=== PATIENT | female | born 1945 ===

== ENCOUNTER 2019-03-28 18:10 | Inpatient (IN) | payer OTHER, MEDICARE ==
[2019-03-28 18:33] VITALS: BMI 20.5
--- NOTE | 2019-03-28 18:39 | PDOC ---
Attending Attestation - Resident Resident Name: Katty Lemons - ED Attending Attestation I have performed the following: I have examined & evaluated the patient, The case was reviewed & discussed with the resident, I agree w/resident's findings & plan, Exceptions are as noted - HPI HPI: 03/28/19 18:50 73-year-old female brought in by ambulance from [facility] for altered mental status ,hypotension and hypoxia. [facility] reports that she has nausea and vomiting earlier today 03/28/19 18:57 - Physicial Exam PE: 03/28/19 18:58 Thin ,73 yo female p/w decreased mental status , she will respond to painful stimuli and c/o her rt hip hurting when we moved her leg head no scalp lacerations,no hematomas lungs ++rhonchi bs on the left cvs [id number] abd flat +tenderness to deep palpation ext no edema skin dry mucus membranes neuro somnolent 03/28/19 19:52 - Critical Care Time Total Critical Care Time: 90 Critical Care Statement: The care of this patient involved high complexity decision making to prevent further life threatening deterioration of the patient 's condition and/or to evaluate & treat vital organ system(s) failure or risk of failure. - Medical Decision Making 03/28/19 19:48 sepsis workup initiated According to the [facility] notes this patient has chronic kidney disease stage IV on dialysis, urinary tract infections, metabolic encephalopathy, hypertension, ambulatory dysfunction, anemia, protein caloric malnutrition, hypokalemia, dementia and depression 03/28/19 19Patient placed on BiPAP with settings for ST, 10/5, right equal to 12 , oxygenation 100%. Her pulse ox on the settings are 99% Review of her CBC shows a mild anemia, troponin is 0.07, chemistries show hypokalemia with potassium equal to 3.2, creatinine is equal to 3 and her BUN is equal to 39, glucose equal to 218 Total bili equal to 1.2, AST to 40 03/28/19 19:55
[2019-03-28 18:52] LABS: BASO % 0.2 % (0-2.0); EOS % 0.1 % (0-4.5); HEMATOCRIT 32.6 % (32.4-45.2); HEMOGLOBIN 10.1 GM/dL (10.7-15.3); LYMPH % 6.9 % (8-40); MCH 33.3 pg (25.7-33.7); MCHC 31.1 g/dl (32.0-36.0); MEAN CELL VOLUME 107.3 fl (80-96); MEAN PLT VOLUME 9.2 fl (7.5-11.1); MONO % 5.9 % (3.8-10.2); NEUT % 86.9 % (42.8-82.8); PLATELET COUNT 260 K/MM3 (134-434); RBC 3.04 M/mm3 (3.60-5.2); RDW 23.2 % (11.6-15.6); VENOUS PC02 60.5 mmHg (38-52); VENOUS PH 7.33 (7.31-7.41); WHITE BLOOD COUNT 10.7 K/mm3 (4.0-10.0)
[2019-03-28] MEDS ORDERED: PIPERACILLIN/TAZOB 3.375 GM 3.375 GM in DEXTROSE 5%-WATER - 50 ML IVPB ONE (19:02)
[2019-03-28] MEDS ORDERED: VANCOMYCIN 1 GM in D5W (PRE-DOCKED) 1,000 MG/250 ML IVPB ONE (19:02)
[2019-03-28 19:04] LABS: INR 1.25 (0.83-1.09); PROTHROMBIN TIME (PATIENT) 14.8 SEC (9.7-13.0)
[2019-03-28 19:07] LABS: ACTIVATED PTT 29.3 SECONDS (25.2-36.5)
[2019-03-28 19:17] LABS: ALBUMIN 1.7 g/dl (3.4-5.0); BILIRUBIN,TOTAL 1.2 mg/dL (0.2-1); BLOOD UREA NITROGEN 39.2 mg/dL (7-18); CALCIUM 9.2 mg/dL (8.5-10.1); POTASSIUM 3.2 mmol/L (3.5-5.1)
--- NOTE | 2019-03-28 19:52 | PDOC ---
History of Present Illness - General Chief Complaint: Lethargy Stated Complaint: AMS Time Seen by Provider: 03/28/19 18:37 History Source: Custodial Records Exam Limitations: Clinical Condition - History of Present Illness Initial Comments: 03/28/19 19:50 73y F with PMH of ESRD on HD MWF (L AVF), HTN, Metabolic Encephalopathy, UTIs, Anemia, Hypokalemia, Dementia, Depression, Malnutrition BIBA from [facility] for hypotension, low O2 saturation and difficult to arouse. [facility] had been complaining of nausea and vomiting. She was found with vomit around her and she was found to be hypotensive (70s systolic), hypoxic (74) and tachycardic. She was sent to the ED. Here patient was arousable with pain and could state her name and birthday. She was found to be hypotensive and tachypneic. SpO2 read in the 80s with poor wave form. Unable to obtain further information from patient. [facility] state that patient had been refusing medications recently. Last dialysis was Friday. PMD: García PMH: see hpi Meds: see med rec Allergies: nkda Full code 03/28/19 20:43 Pt now awake. Stating she was vomiting "all day". Denies abdominal pain. Past History - Past Medical History Allergies/Adverse Reactions: Allergies Allergy/AdvReac Type Severity Reaction Status Date / Time No Known Allergies Allergy Verified 03/28/19 18:26 Home Medications: Ambulatory Orders Aspirin [Ecotrin] 81 mg PO 03/28/19 Darbepoetin Jacob in Polysorbat [Aranesp] 60 mcg IJ 03/28/19 Lidocaine [Aspercreme] 1 each TP 03/28/19 Loperamide HCl [Loperamide] 2 mg PO PRN 03/28/19 Metoprolol Tartrate 25 mg PO BID 03/28/19 Mirtazapine [Remeron -] 30 mg PO DAILY 03/28/19 Sertraline HCl [Zoloft -] 25 mg PO DAILY 03/28/19 Sevelamer Carbonate [Renvela] 800 mg PO TID 03/28/19 Zinc Oxide 20% Topical Oint 454 gm NR 03/28/19 Anemia: Yes COPD: No Dialysis: Yes GI Disorders: Yes (gerd) HTN: Yes - Psycho Social/Smoking Cessation Hx Smoking History: Unknown if ever smoked Have you smoked in the past 12 months: No Information on smoking cessation initiated: No Hx Alcohol Use: No Drug/Substance Use Hx: No Review of Systems - Review of Systems Able to Perform ROS?: No *Physical Exam - Vital Signs Last Vital Signs Temp Pulse Resp BP Pulse Ox 99.3 F 103 H 31 H 77/53 L 82 L 03/28/19 18:27 03/28/19 19:15 03/28/19 19:15 03/28/19 19:15 03/28/19 18:45 - Physical Exam General Appearance: Yes: Severe Distress, Cachetic, Thin HEENT: positive: HANK, Pale Conjunctivae, Other (dry membranes, poor dentition) . negative: Scleral Icterus (R), Scleral Icterus (L) Neck: positive: Trachea midline, Supple. negative: Lymphadenopathy (R), Lymphadenopathy (L) Respiratory/Chest: positive: Rapid RR, Crackles (Left smith), Rhonchi (L and R smith) Cardiovascular: positive: S1, S2, Tachycardia. negative: Edema, JVD, Murmur Vascular Pulses: Dorsalis-Pedis (R): 1+, Doralis-Pedis (L): 1+ Gastrointestinal/Abdominal: positive: Normal Bowel Sounds, Soft, Tenderness (RUQ ). negative: Distended, Hernia, Mass Extremity: positive: Normal Capillary Refill. negative: Swelling, Calf Tenderness, Erythema Integumentary: positive: Normal Color, Mottled, Other (sacral ulcer). negative : Erythema, Rash Neurologic: positive: Respond to painful stimul. negative: Alert Procedures - Central Line Central Line Lumen: triple Central Line Position: internal jugular (L) Anesthesia: 1% Lidocaine Amount of anesthesia (ccs): 2 Complications: none Post Central Line Insertion: sutured, good blood return Progress: 03/29/19 00:31 L IVJ line placed under ultrasound guidance using sterile techniques. Supervised by Dr. Coleman. needle placement confirmed by venous blood return. line placed at 16cm. will confirm with chest xray and adjust as needed. ED Treatment Course - LABORATORY CBC & Chemistry Diagram: 03/28/19 18:39 03/28/19 18:39 - ADDITIONAL ORDERS Additional order review: Laboratory Results 03/28/19 03/28/19 03/28/19 18:39 18:39 18:39 PT with INR 14.80 H INR 1.25 H PTT (Actin FS) 29.3 VBG pH 7.33 POC VBG pCO2 60.5 H POC VBG pO2 No Result Required. VBG HCO3 31.1 H VBG O2 Sat (Nicola) 14.0 L VBG Base Excess 4.7 H Sodium Potassium Chloride Carbon Dioxide Anion Gap BUN Creatinine Est GFR (CKD-EPI)AfAm Est GFR (CKD-EPI)NonAf Random Glucose Lactic Acid 11.6 H* Calcium Total Bilirubin AST ALT Alkaline Phosphatase Troponin I Total Protein Albumin 03/28/19 03/28/19 03/28/19 18:39 18:39 18:39 PT with INR INR PTT (Actin FS) Cancelled VBG pH POC VBG pCO2 POC VBG pO2 VBG HCO3 VBG O2 Sat (Nicola) VBG Base Excess Sodium 140 Potassium 3.2 L Chloride 94 L Carbon Dioxide 29 Anion Gap 17 H BUN 39.2 H Creatinine 3.0 H Est GFR (CKD-EPI)AfAm 17.03 Est GFR (CKD-EPI)NonAf 14.69 Random Glucose 218 H Lactic Acid Calcium 9.2 Total Bilirubin 1.2 H AST 40 H ALT 13 Alkaline Phosphatase 112 Troponin I 0.07 H Cancelled Total Protein 6.0 L Albumin 1.7 L 03/28/19 18:39 RBC 3.04 L MCV 107.3 H MCHC 31.1 L RDW 23.2 H MPV 9.2 Neutrophils % 86.9 H Lymphocytes % 6.9 L Monocytes % 5.9 Eosinophils % 0.1 Basophils % 0.2 - RADIOLOGY Radiology Studies Ordered: Category Date Time Status ABDOMEN & PELVIS CT W/O CONTR [CT] Stat CT Scan 03/28/19 20:03 Ordered Medical Decision Making - Critical Care Time Total Critical Care Time (minutes): 90 Critical Care Statement: The care of this patient involved high complexity decision making to prevent further life threatening deterioration of the patient 's condition and/or to evaluate & treat vital organ system(s) failure or risk of failure. - Medical Decision Making 03/28/19 20:45 73y F presenting from [facility] found to be hypotensive, hypoxic, tachycardic. arousable but lethargic. was vomiting and found in the vomitus ddx includes but not limited to hypovolemia (sepsis v. hypovolemic v. arrhythmia v. heart failure), pna (aspiration pneumonitis v community acquired) , anemia, blood loss, AAA pocus: no pericarial efusion, no AAA (limted views however) no FF. -septic w/u. 1L NS hung by EMS in L arm where AVF is. Line was locked and new line placed in R AC. Line also placed in LLE. received 3L NS. responding to fluids. labs show slight leukocytosis. vbg normal. abg shows metabolic alkalosis chem shows hypokalemia and hypochloremia likely 2/2 vomiting. -vanc, zosyn. repsonding to fluids. pt placed on bipap, saturating well. cxr shows L lobe haziness, could be aspirate. limited due to 1 view. pt now arousable. will admit to icu for hypovolemia and possibly aspiration pneumonitis, UTI Accepted by ICU 03/29/19 00:43 bp responds to fluids with MAPs going to the 70s however when not getting boluses, bp drops along with MAPS (<65). Pt may be chronically hypotensive however will place line and start on pressors. See procedure note for line. Line was determined to be emergent. No family at bedside. CXR for placement pending. Discharge - Discharge Information Problems reviewed: Yes Clinical Impression/Diagnosis: Hypovolemia Hypotension Qualifiers: Hypotension type: unspecified hypotension type Qualified Code(s): I95.9 - Hypotension, unspecified Aspiration into airway Qualifiers: Encounter type: initial encounter Qualified Code(s): T17.908A - Unspecified foreign body in respiratory tract, part unspecified causing other injury, initial encounter Condition: Stable - Admission Yes - Follow up/Referral - Patient Discharge Instructions - Post Discharge Activity
[2019-03-28 19:54] LABS: ARTERIAL BLD GAS O2 SATURATION 95.1 % (95-98); ARTERIAL BLOOD GAS PO2 89.1 mmHg (80-100); ARTERIAL BLOOD GAS pH 7.47 (7.35-7.45); CARBOXYHEMOGLOBIN 0.9 % (0-2)
[2019-03-28 20:16] LABS: ANISOCYTOSIS 2+; MACROCYTOSIS 2+; PLATELET ESTIMATE NORMAL
[2019-03-28] MEDS ORDERED: SODIUM CHLORIDE 1,000 ML IV STA ×2 (20:23)
[2019-03-28] MEDS ORDERED: PIPERACILLIN/TAZOB 3.375 GM 3.375 GM/50 ML BAG IVPB ONE (20:32)
[2019-03-28] MEDS ORDERED: ALBUTEROL SO4 0.083% IH SOL 2.5 MG/3 ML VIAL.NEB. NEB PRN (20:45)
--- NOTE | 2019-03-28 20:55 | CONSULT ---
Consultation: REQUESTING PROVIDER: Dr. Lemons CONSULT REQUEST: We have been asked to medically evaluate this patient for hypotension, lethargy. HISTORY OF PRESENT ILLNESS: 73 y/o F from [facility] with PMH ESRD (M/W/F; L AVF), HTN, met encephalopathy, recurrent UTI, anemia, hypokalemia, dementia, depression, who presented to the ED for hypotension and lethargy that occurred today. Per pt and correction record, pt has been residing at [facility]. This week, while there she has had multiple episodes of NBNB emesis, as well as loose, foul-smelling stools. States that she has lost weight during this time, but has maintained her appetite. Today, pt was found unresponsive in emesis. Was hypotensive to 70's systolic, 02 74%, tachycardia to 115bpm and was lethargic. Was brought in via EMS. In ER, pt less lethargic, responded well to 3L IVF with improved mentation and BP w/ MAP in high 70's. Was subsequently placed on BiPAP, did not have emesis since well before arrival. Was mentating well and able to protect own airway. ICU consulted for hypotension, lethargy and possible aspiration PNA. States that she ambulates using a walker. PMH: as above PsxH: denies meds: as in chart FH: lung cancer in "different family members" "I don't remember" SH: denies alcohol, cigarette or recreational drug use REVIEW OF SYSTEMS: +lethargy +hypotension PHYSICAL EXAMINATION +lui Vital Signs 03/28/19 03/28/19 03/28/19 19:00 19:15 21:00 Temperature Pulse Rate Pulse Rate [ 101 H 103 H 100 H Apical] Respiratory 34 H 31 H Rate Blood Pressure Blood Pressure 48/35 L 77/53 L 96/80 [Right Arm] O2 Sat by Pulse Oximetry (%) GENERAL: AAO x 2 (self, place), in NAD . resting comfortably HEAD: Normal with no signs of trauma. EYES: Pupils equal, round and reactive to light, extraocular movements intact, sclera anicteric, conjunctiva clear. EARS, NOSE, THROAT: Ears normal, nares patent, oropharynx clear without exudates. Dry MM NECK: Normal range of motion, supple LUNGS: +rhonchi b/l. without accessory m usage HEART: +tachycardic rate and rhythm, normal S1 and S2 without murmur, rub or gallop. ABDOMEN: Soft, nontender, not distended, normoactive bowel sounds LOWER EXTREMITIES: 2+ pt pulses, warm, well-perfused. +contracted NEUROLOGICAL: Cranial nerves II-XII intact. PSYCHIATRIC: Cooperative. Laboratory Tests 03/28/19 03/28/19 03/28/19 18:39 18:39 18:39 WBC 10.7 H Hgb 10.1 L Hct 32.6 Plt Count 260 ABG pH ABG pCO2 at Pt Temp ABG pO2 at Pt Temp ABG HCO3 Sodium 140 Potassium 3.2 L Chloride 94 L Carbon Dioxide 29 BUN 39.2 H Creatinine 3.0 H Random Glucose 218 H Lactic Acid 11.6 H* Total Bilirubin 1.2 H AST 40 H Troponin I 0.07 H Albumin 1.7 L 03/28/19 19:46 Plt Count ABG pH 7.47 H ABG pCO2 at Pt Temp 41.0 ABG pO2 at Pt Temp 89.1 ABG HCO3 29.7 H Sodium AST EKG: +L axis, sinus tach ~100bpm, LVH, without acute st-t wave changes CXR: with possible JIGAR infiltrate. pending official read CTAP: pending ASSESSMENT/PLAN: 73 y/o F with PMH ESRD (M/W/F; L AVF), HTN, met encephalopathy, recurrent UTI, anemia, hypokalemia, dementia, depression, who presented to the ED for hypotension and lethargy that occurred today. ICU consulted for hypotension, lethargy and possible aspiration PNA. #Neuro -AAO x 2 -currently no longer lethargic -however f/u head CT, ammonia level to r/o alternate causes toxic met encephalopathy may also be 2/2 uremia, vol depletion. #Pulm/ID Acute hypoxic RF, sepsis 2/2 aspiration PNA -w/ possible asp PNA on CXR: JIGAR. f/u official read -c/w duonebs RQID, ventolin q4h PRN -s/p vanc, zosyn in ED. c/w zosyn 2.25 gm q8 (renally dosed) -f/u ucx, blood cx, spu -on BiPAP. w/o lethargy currently. mentating well, no emesis since well before arrival. protecting own airway on for work of breathing -improved hypoxia. Pa02 wnl on ABG #Cardio Hypotension - resolved -possible 2/2 sepsis, has improved and resp well to IVF initially -+L IJ placed in ED, to start on levo gtt -c/t monitor. MAP in high 70's -f/u UO to check for adequate vol resuscitation. -hold met tartate Demand ischemia possible 2/2 sepsis -initial trop 0.07 >0.19> c/t trend -repeat EKG -f/u ECHO #GI metabolic alkalosis possible 2/2 diarrhea, vomiting, hypokalemia contraction alkalosis -currently without vomiting. may have chronic diarrhea, on loperamide PRN at NM -seen on ABG. f/u repeat -f/u U chloride -elevated lactic (11)>9.6> 5> repeat and trend, likely vol depleted. -received 3L IVF in ER, initially responded well. -f/u CTAP to check for alternate pathology, also w/ elevated lactic check for ischemia -f/u stool cx, ova and parasites. f/u UO to assess for adequate vol resusc #Renal MAGALIE vs MAGALIE on CKD -c/w gentle IVF to avoid overload -f/u urine lytes, likely pre-renal from vol depletion -f/u renal, bladder sono - check for hydro ESRD -on HD M, W, F. has AVF -dialyzed on F -will consult Nephro for poss dialysis tomorrow Hypokalemia -has chronically -will avoid giving K for now as renal patient -c/t monitor #F/E/N IV NS 75 cc/hr continue to follow lytes NPO #lines/tubes +L IJ- 03/29 +lui #PPX DVT: hep 5k sq tid #Code status full code. OK with intubation if needed. makes decisions on own #Dispo admit to ICU Dispo: We will continue to follow the patient. Thank you for this consultative opportunity. Visit type - Emergency Visit Emergency Visit: Yes ED Registration Date: 03/28/19 Care time: The patient presented to the Emergency Department on the above date and was hospitalized for further evaluation of their emergent condition. - New Patient This patient is new to me today: Yes Date on this admission: 10/14/19 - Critical Care Critical Care patient: Yes Total Critical Care Time (in minutes): 42 Critical Care Statement: The care of this patient involved high complexity decision making to prevent further life threatening deterioration of the patient 's condition and/or to evaluate & treat vital organ system(s) failure or risk of failure.
[2019-03-28] MEDS ORDERED: SODIUM CHLORIDE 1,000 ML IV SCH (21:00)
[2019-03-28] MEDS ORDERED: LACTATED RINGERS SOLUTION 1000 ML INFUS.BAG IV ONE (21:07)
[2019-03-28] MEDS ORDERED: KCL 10 MEQ IVPB 10 MEQ/100 ML INFUS.BAG IVPB ONE (21:25)
[2019-03-28] MEDS ORDERED: VANCOMYCIN 1 GRAM (PRE-DOCKED) 1,000 MG/250 ML BAG IVPB ONE (21:25)
[2019-03-28] MEDS ORDERED: SODIUM CHLORIDE 500 ML IV STA (21:50)
[2019-03-28] MEDS: HEPARIN NA (PORCINE) 5,000 UNITS/ML 1ML VIAL SQ SCH (21:53)
[2019-03-28] MEDS ORDERED: MUPIROCIN 2% TOPICAL OINTMENT FOR DECOLONIZATION NS SCH (22:00)
[2019-03-28] MEDS: ALBUTEROL SO4 2.5/IPRATROPIUM 0.5 INH SOL 3 ML VIAL.NEB. NEB SCH (22:31)
[2019-03-28 22:46] LABS: PH,URINE 8.5 (5.0-8.0); URINE APPEARANCE Turbid; URINE BILIRUBIN 1+ (NEGATIVE); URINE COLOR Yellow; URINE GLUCOSE (UA) Trace (NEGATIVE); URINE KETONE Trace (NEGATIVE); URINE LEUK ESTERASE 3+ (NEGATIVE); URINE NITRITE Negative (NEGATIVE); URINE PROTEIN 3+ (NEGATIVE); URINE UROBILINOGEN 0.2 mg/dL (0.2-1.0)
[2019-03-28 22:50] LABS: URINE RBC 50-100 /hpf (0-4); URINE WBC 50-100 /hpf (0-5)
[2019-03-28 22:51] LABS: URINE BACTERIA MANY /hpf (NEGATIVE)
[2019-03-28] MEDS: KCL 10 MEQ IVPB 10 MEQ/100 ML INFUS.BAG IVPB SCH (23:16)
--- NOTE | 2019-03-28 23:55 | HP ---
Admitting History and Physical - Primary Care Physician PCP: Amanda Mariano - Admission Chief Complaint: SOB, Hypoxia History of Present Illness: This is a 73 y/o woman from [facility] with a PMHx of ESRD (HD- M,W,F), CKD, HTN , Anemia, MDD, Anxiety, UTI, Hypokalemia, Constipation. Who presents to the ED with SOB, hypoxia, and hypotension. Per [facility] records patient was found this am with brown vomitus on her clothing and bed. She was placed in semi owens's for aspiration precaution. Patient denied abdominal pain to [facility] staff, as well as to ED staff. On arrival patient's vital signs- T 99.3, P 109, R 38, BP 62/39, Spo2 80%. Patient was placed on Bipap. ED course was noted for: (1) Chest Xray- Infiltrate L- Base (2) Septic Shock- BP 62/39, R 38, Spo2 80%, Lactic Acid 11.6 (3) Trop O.07 History Source: Transfer Record Limitations to Obtaining History: Clinical Condition - Past Medical History Cardiovascular: Yes: HTN Renal/: Yes: Hemodialysis Heme/Onc: Yes: Anemia Psych: Yes: Anxiety, Depression - Past Surgical History Past Surgical History: Yes: AV Fistula/Graft - Smoking History Smoking history: Unknown if ever smoked Have you smoked in the past 12 months: No - Alcohol/Substance Use Hx Alcohol Use: No History of Substance Use: reports: None - Social History Usual Living Arrangement: Yes: Correction ADL: Support Services Home Medications - Allergies Allergies/Adverse Reactions: Allergies Allergy/AdvReac Type Severity Reaction Status Date / Time No Known Allergies Allergy Verified 03/28/19 18:26 - Home Medications Home Medications: Ambulatory Orders Aspirin [Ecotrin] 81 mg PO DAILY 03/28/19 Darbepoetin Jacob in Polysorbat [Aranesp] 60 mcg IJ ASDIR 03/28/19 Lidocaine [Aspercreme] 1 each TP DAILY 03/28/19 Loperamide HCl [Loperamide] 2 mg PO Q8H PRN 03/28/19 Metoprolol Tartrate 25 mg PO BID 03/28/19 Mirtazapine [Remeron -] 30 mg PO DAILY 03/28/19 Sertraline HCl [Zoloft -] 25 mg PO DAILY 03/28/19 Sevelamer Carbonate [Renvela] 800 mg PO TID 03/28/19 Zinc Oxide 20% Topical Oint 454 gm NR DAILY 03/28/19 Megestrol Acetate Oral Susp [Megace Liquid -] 400 mg PO DAILY 03/29/19 Ondansetron [Zofran *Odt*] 4 mg SL TID 03/29/19 Family Medical History Family History: Unable to Obtain Review of Systems Unable to obtain ROS, reason: Clinical Condition Physical Examination Vital Signs: Vital Signs Temperature 99.3 F 03/28/19 18:27 Pulse Rate 103 H 03/28/19 19:15 Respiratory Rate 31 H 03/28/19 19:15 Blood Pressure 77/53 L 03/28/19 19:15 O2 Sat by Pulse Oximetry (%) 100 03/28/19 21:04 Constitutional: Yes: Other (arousable to verbal/tactile stimulus, then lethargic ) Eyes: Yes: Conjunctiva Clear, PERRL HENT: Yes: WNL, Atraumatic, Normocephalic, Other (poor dentition- upper dry mucosal membranes) Neck: Yes: WNL, Supple, Trachea Midline Cardiovascular: Yes: Tachycardia, S1, S2 Respiratory: Yes: Diminished, On BiPap, Rhonchi Gastrointestinal: Yes: WNL, Normal Bowel Sounds, Soft Renal/: Yes: Staples Present Breast(s): Yes: WNL Musculoskeletal: Yes: WNL Extremities: Yes: Other (Left AV Graft) Edema: No Integumentary: Yes: Pressure Ulcer (stage 1 Left Hip, stage 1 Right Heel) Neurological: Yes: Lethargy Labs: CBC, BMP 03/28/19 18:39 03/28/19 18:39 Imaging - Results Chest X-ray: Image Reviewed EKG: Image Reviewed Problem List - Problems (1) Severe sepsis with septic shock Code(s): A41.9 - SEPSIS, UNSPECIFIED ORGANISM; R65.21 - SEVERE SEPSIS WITH SEPTIC SHOCK (2) Acute respiratory failure with hypoxia Code(s): J96.01 - ACUTE RESPIRATORY FAILURE WITH HYPOXIA (3) UTI (urinary tract infection) Code(s): N39.0 - URINARY TRACT INFECTION, SITE NOT SPECIFIED (4) ESRD (end stage renal disease) on dialysis Code(s): N18.6 - END STAGE RENAL DISEASE; Z99.2 - DEPENDENCE ON RENAL DIALYSIS (5) Anemia Code(s): D64.9 - ANEMIA, UNSPECIFIED (6) MDD (major depressive disorder) Code(s): F32.9 - MAJOR DEPRESSIVE DISORDER, SINGLE EPISODE, UNSPECIFIED (7) Anxiety Code(s): F41.9 - ANXIETY DISORDER, UNSPECIFIED (8) Hypokalemia Code(s): E87.6 - HYPOKALEMIA (9) Pressure ulcer Code(s): L89.90 - PRESSURE ULCER OF UNSPECIFIED SITE, UNSPECIFIED STAGE Assessment/Plan This is a 73 y/o woman from [facility] with a PMHx of ESRD (HD- M,W,F), CKD, HTN , Anemia, MDD, Anxiety, UTI, Hypokalemia, Constipation. Admitted to ICU for Severe Sepsis, Septic shock, Pneumonia, Acute Respiratory Failure with Hypoxia. Problems: Severe Sepsis Septic Shock Pneumonia Acute Respiratory Failure with Hypoxia UTI ESRD HTN Anemia MDD Anxiety Hypokalemia Plan: Cardiac Monitoring Blood Cultures-pending Urine Cultures- pending Urine Legionella NS boluses given in ED Will likely need IV pressors, secondary to ESRD Appreciate ID consult Appreciate Pulmonary consult Appreciate Cardiology consult Appreciate Nephrology consult- HD Management Chest Xray- Left Infiltrate Vancomcyin and Zosyn started will continue renal dosing Maintain MAP > 65 Monitor CBC, BMP Continue Bipap, titrate with ABGs Aspiration Precautions Elevated Troponin likely due to Demand Ischemia Hold BP meds secondary to Septic Shock Hold Meds until condition improves Echo Wound care pressure ulcers to L- Hip, R- Heel FEN Gentle IVF secondary to Hypotension Replete lytes prn NPO DVT ppx SCDs Heparin SQ Code Status: Full Code Dispo: Requires Inpatient Care Visit type - Emergency Visit Emergency Visit: Yes ED Registration Date: 03/28/19 Care time: The patient presented to the Emergency Department on the above date and was hospitalized for further evaluation of their emergent condition. - New Patient This patient is new to me today: Yes Date on this admission: 03/28/19 - Critical Care Critical Care patient: Yes Total Critical Care Time (in minutes): 35 Critical Care Statement: The care of this patient involved high complexity decision making to prevent further life threatening deterioration of the patient 's condition and/or to evaluate & treat vital organ system(s) failure or risk of failure.
[2019-03-29] MEDS ORDERED: NOREPINEPHRINE BITARTRATE 4,000 MCG in DEXTROSE 5%-WATER - 496 ML IV SCH (00:30)
[2019-03-29] MEDS ORDERED: NOREPINEPHRINE BITARTRATE 8,000 MCG in DEXTROSE 5%-WATER - 492 ML IV SCH (01:15)
[2019-03-29] MEDS ORDERED: PIPERACILLIN/TAZOB 2.25 GM 2.25 GM in DEXTROSE 5%-WATER - 50 ML IVPB SCH ×2 (02:00→18:00)
[2019-03-29] MEDS ORDERED: PIPERACILLIN/TAZOB 2.25 GM 2.25 GM/50 ML BAG IVPB ONE ×2 (02:14→09:32)
[2019-03-29] MEDS: PIPERACILLIN/TAZOB 2.25 GM 2.25 GM in DEXTROSE 5%-WATER - 50 ML IVPB SCH ×2 (02:31→10:49)
[2019-03-29] MEDS ORDERED: SODIUM CHLORIDE 500 ML IV STA ×2 (03:46→17:19)
[2019-03-29] MEDS: HEPARIN NA (PORCINE) 5,000 UNITS/ML 1ML VIAL SQ SCH ×3 (06:08→23:43)
[2019-03-29 06:53] LABS: ARTERIAL BLD GAS O2 SATURATION 96.2 % (95-98); ARTERIAL BLOOD GAS BASE EXCESS 6.5 meq/l (-2-2); ARTERIAL BLOOD GAS PCO2 39.1 mmHg (35-45); ARTERIAL BLOOD GAS PO2 83.9 mmHg (80-100)
[2019-03-29 07:06] LABS: ALLENS TEST POSITIVE
[2019-03-29 08:45] LABS: BASO % 0.2 % (0-2.0); EOS % 0.1 % (0-4.5); HEMATOCRIT 25.4 % (32.4-45.2); HEMOGLOBIN 8.5 GM/dL (10.7-15.3); LYMPH % 6.9 % (8-40); MCH 34.4 pg (25.7-33.7); MCHC 33.7 g/dl (32.0-36.0); MEAN CELL VOLUME 102.1 fl (80-96); MEAN PLT VOLUME 8.4 fl (7.5-11.1); MONO % 5.6 % (3.8-10.2); NEUT % 87.2 % (42.8-82.8); PLATELET COUNT 203 K/MM3 (134-434); RBC 2.49 M/mm3 (3.60-5.2); RDW 22.4 % (11.6-15.6); WHITE BLOOD COUNT 9.7 K/mm3 (4.0-10.0)
[2019-03-29 09:03] LABS: ALBUMIN 1.3 g/dl (3.4-5.0); BILIRUBIN,TOTAL 1.4 mg/dL (0.2-1); BLOOD UREA NITROGEN 38.1 mg/dL (7-18); CALCIUM 7.5 mg/dL (8.5-10.1); CREATININE 2.1 mg/dL (0.55-1.3); MAGNESIUM 1.8 mg/dL (1.8-2.4); PHOSPHOROUS 1.5 mg/dL (2.5-4.9); TOT PROT 4.6 g/dl (6.4-8.2)
[2019-03-29 09:15] LABS: POTASSIUM 2.4 mmol/L (3.5-5.1)
[2019-03-29] MEDS ORDERED: CALCIUM GLUCONATE 10% - 1,000 MG/10 ML VIAL IVPUSH ONE (09:18)
[2019-03-29] MEDS ORDERED: CALCIUM GLUCONATE 10% - 1,000 MG/10 ML VIAL ONE (09:32)
[2019-03-29] MEDS: POTASSIUM CHLORIDE 20 MEQ PREMIX IVPB 100 ML IVPB SCH ×3 (11:00→14:00)
--- NOTE | 2019-03-29 11:32 | CONSULT ---
Consult Consult Specialty:: Infectious Disease Referred by:: Dr Tyler Reason for Consultation:: Aspiration PNA - History of Present Illness Chief Complaint: Hypotension and AMS History of Present Illness: Pt is a 73 y/o F with PMHx of ESRD (M/W/F, L AVF), HTN, metabolic encephalopathy, recurrent UTI, anemia, hypokalemia, dementia, depression, protein energy malnutrition, GERD, dementia,brought in for hypotension and lethargy x1 day from [facility]. Per chart/pt, pt reports multiple episodes of NBNB emesis, with loose, foul-smelling stools for over 3 days. She was was found unresponsive and in emesis. BP was 70's systolic, 02 sats 74%, with tachycardia to 115bpm. In the ED, sats improved to 80s then pt was placed on Bipap and levophed started after 3L IVF. When I saw the patient she was awake and alert and oriented x3 on bipap, no obvious emesis and denied, dysuria, malaise or pain, but endorsed loosed non bloody stool and emesis. Pt acknowledges still making a little urine, with no burning. Pt's transfer documents did not indicate recent AB use. 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 Cardio/Vascular: Yes: HTN Renal/: Yes: Hemodialysis Psych: Yes: Anxiety, Depression - Past Surgical History Past Surgical History: Yes: AV Fistula/Graft - Alcohol/Substance Use Hx Alcohol Use: No History of Substance Use: reports: None - Smoking History Smoking history: Unknown if ever smoked Have you smoked in the past 12 months: No - Social History ADL: Support Services Home Medications - Allergies Allergies/Adverse Reactions: Allergies Allergy/AdvReac Type Severity Reaction Status Date / Time No Known Allergies Allergy Verified 03/28/19 18:26 - Home Medications Home Medications: Ambulatory Orders Aspirin [Ecotrin] 81 mg PO DAILY 03/28/19 Darbepoetin Jacob in Polysorbat [Aranesp] 60 mcg IJ ASDIR 03/28/19 Lidocaine [Aspercreme] 1 each TP DAILY 03/28/19 Loperamide HCl [Loperamide] 2 mg PO Q8H PRN 03/28/19 Metoprolol Tartrate 25 mg PO BID 03/28/19 Mirtazapine [Remeron -] 30 mg PO DAILY 03/28/19 Sertraline HCl [Zoloft -] 25 mg PO DAILY 03/28/19 Sevelamer Carbonate [Renvela] 800 mg PO TID 03/28/19 Zinc Oxide 20% Topical Oint 454 gm NR DAILY 03/28/19 Megestrol Acetate Oral Susp [Megace Liquid -] 400 mg PO DAILY 03/29/19 Ondansetron [Zofran *Odt*] 4 mg SL TID 03/29/19 Family Medical History Family History: Unable to Obtain Review of Systems - Review of Systems Constitutional: denies: Chills, Fever, Loss of Appetite HENT: denies: Nasal Congestion Cardiovascular: denies: Chest Pain, Edema Respiratory: denies: Cough Gastrointestinal: reports: Diarrhea, Vomiting. denies: Constipation, Vomiting Blood Genitourinary: denies: Dysuria, Flank Pain, Frequency Musculoskeletal: denies: Back Pain Neurological: reports: Change in LOC, Confusion Physical Exam Vital Signs: Vital Signs Temperature 99.3 F 03/28/19 18:27 Pulse Rate 87 03/29/19 06:00 Respiratory Rate 21 H 03/29/19 06:00 Blood Pressure 98/59 L 03/29/19 06:00 O2 Sat by Pulse Oximetry (%) 100 03/29/19 06:00 Constitutional: Yes: No Distress, Calm, Thin Eyes: Yes: Conjunctiva Clear, EOM Intact. No: Sclera Icterus HENT: Yes: Atraumatic Neck: Yes: Supple Cardiovascular: Yes: S1, S2 Respiratory: Yes: On BiPap, Rhonchi Gastrointestinal: Yes: Soft, Hypoactive Bowel Sounds. No: Tenderness Renal/: No: CVA Tenderness - Left, CVA Tenderness - Right Extremities: Yes: Other (peripheral line on foot, tinea ungium, cold extremities ) Edema: No Integumentary: Yes: Pressure Ulcer (stage 1 x3 saccral area) Neurological: Yes: Alert, Oriented. No: Aphasia, Facial Droop Labs: CBC, BMP 03/29/19 08:10 03/29/19 08:10 Imaging - Results Chest X-ray: Report Reviewed, Image Reviewed Cat Scan: Report Reviewed Assessment/Plan Pt is a 73 y/o F with PMHx of ESRD (M/W/F, L AVF), HTN, metabolic encephalopathy, recurrent UTI, anemia, hypokalemia, dementia, depression, protein energy malnutrition, GERD, brought in for hypotension and lethargy x1 day from [facility]. Per chart/pt, pt reports multiple episodes of NBNB emesis, with loose, foul-smelling stools for over 3 days. She was was found unresponsive and in emesis. ESRD (M/W/F, L AVF), HTN, metabolic encephalopathy, recurrent UTI, anemia, hypokalemia, dementia, depression, protein energy malnutrition, GERD, Septic shock emesis, with loose, foul-smelling stools Possible aspiration PNA possible SBO Positive urinary Ag for strep PNA Plan: Septic shock secondary to CAP from PR environment will cover broadly pending cx results CURB 65 on presentation-4, highest risk, 30 day mortality, in pt admission consider ICU PSI score-154, risk class V, in pt admission CXR with possible infitrates vs congestion Bcx pending Ucx pending Will cont vanc- last dose 03/28/19 about 8pm Vanc level for 5.30pm , to redose today Cont zosyn- 2.25g D/W Dr Marin Jackson MD, PGY 3 Infectious Disease rotation Visit type - Emergency Visit Emergency Visit: Yes ED Registration Date: 03/28/19 Care time: The patient presented to the Emergency Department on the above date and was hospitalized for further evaluation of their emergent condition. - New Patient This patient is new to me today: Yes Date on this admission: 03/29/19 - Critical Care Critical Care patient: Yes Total Critical Care Time (in minutes): 29 ATTENDING PHYSICIAN STATEMENT I saw and evaluated the patient. I reviewed the resident's note and discussed the case with the resident. I agree with the resident's findings and plan as documented. SUBJECTIVE: OBJECTIVE: ASSESSMENT AND PLAN:
[2019-03-29] MEDS: ALBUTEROL SO4 2.5/IPRATROPIUM 0.5 INH SOL 3 ML VIAL.NEB. NEB SCH ×4 (12:01→20:24)
--- NOTE | 2019-03-29 12:41 | EKG ---
Test Reason : Blood Pressure : / mmHG Vent. Rate : 102 BPM Atrial Rate : 102 BPM P-R Int : 154 ms QRS Dur : 104 ms QT Int : 404 ms P-R-T Axes : 048 -29 120 degrees QTc Int : 526 ms SINUS TACHYCARDIA WITH PREMATURE ATRIAL COMPLEXES POSSIBLE LEFT ATRIAL ENLARGEMENT LEFT VENTRICULAR HYPERTROPHY T WAVE ABNORMALITY, CONSIDER LATERAL ISCHEMIA PROLONGED QT ABNORMAL ECG WHEN COMPARED WITH ECG OF 28-MAR-2019 23:35, PREMATURE ATRIAL COMPLEXES ARE NOW PRESENT Confirmed by RIVKA ELLER MD ([id number]) on 03/29/2019 12:41:32 PM Referred By: Confirmed By:RIVKA ELLER MD
--- NOTE | 2019-03-29 12:41 | EKG ---
Test Reason : Blood Pressure : / mmHG Vent. Rate : 096 BPM Atrial Rate : 096 BPM P-R Int : 144 ms QRS Dur : 098 ms QT Int : 392 ms P-R-T Axes : 054 -37 116 degrees QTc Int : 495 ms NORMAL SINUS RHYTHM WITH SINUS ARRHYTHMIA POSSIBLE LEFT ATRIAL ENLARGEMENT LEFT AXIS DEVIATION INCOMPLETE RIGHT BUNDLE BRANCH BLOCK SEPTAL INFARCT , AGE UNDETERMINED T WAVE ABNORMALITY, CONSIDER LATERAL ISCHEMIA ABNORMAL ECG WHEN COMPARED WITH ECG OF 29-MAR-2019 10:37, PREMATURE ATRIAL COMPLEXES ARE NO LONGER PRESENT SEPTAL INFARCT IS NOW PRESENT Confirmed by RIVKA ELLER MD ([id number]) on 03/29/2019 12:40:41 PM Referred By: Confirmed By:RIVKA ELLER MD
--- NOTE | 2019-03-29 12:52 | EKG ---
Test Reason : Blood Pressure : / mmHG Vent. Rate : 100 BPM Atrial Rate : 100 BPM P-R Int : 168 ms QRS Dur : 100 ms QT Int : 422 ms P-R-T Axes : 043 -25 139 degrees QTc Int : 544 ms NORMAL SINUS RHYTHM POSSIBLE LEFT ATRIAL ENLARGEMENT LEFT VENTRICULAR HYPERTROPHY T WAVE ABNORMALITY, CONSIDER LATERAL ISCHEMIA PROLONGED QT ABNORMAL ECG WHEN COMPARED WITH ECG OF 28-MAR-2019 18:40, ST NO LONGER DEPRESSED IN INFERIOR LEADS NONSPECIFIC T WAVE ABNORMALITY, IMPROVED IN INFERIOR LEADS Confirmed by RIVKA ELLER MD ([id number]) on 03/29/2019 12:52:27 PM Referred By: Confirmed By:RIVKA ELLER MD
--- NOTE | 2019-03-29 12:54 | EKG ---
Test Reason : Blood Pressure : / mmHG Vent. Rate : 105 BPM Atrial Rate : 105 BPM P-R Int : 148 ms QRS Dur : 098 ms QT Int : 390 ms P-R-T Axes : 078 -34 141 degrees QTc Int : 515 ms POOR DATA QUALITY, INTERPRETATION MAY BE ADVERSELY AFFECTED SINUS TACHYCARDIA BIATRIAL ENLARGEMENT LEFT AXIS DEVIATION PULMONARY DISEASE PATTERN LEFT VENTRICULAR HYPERTROPHY ABNORMAL ECG NO PREVIOUS ECGS AVAILABLE Confirmed by RIVKA ELLER MD ([id number]) on 03/29/2019 12:54:08 PM Referred By: Confirmed By:RIVKA ELLER MD
--- NOTE | 2019-03-29 12:57 | CONSULT ---
Consult Consult Specialty:: Nephrology Reason for Consultation:: ESRD - History of Present Illness Chief Complaint: altered mental status History of Present Illness: Pt is a 73 year old female with pmhx of ESRD on HD MWF, HTN, metabolic encephalopathy, UTI. anemia, hypokalemia, dementia, and depression who was sent in from the [place] for altered mental status and hypotension. She is lethargic and unable to give much history. I called Dr Coyle and pt was last dialyzed on Friday via her left arm fistula. Pt is usually verbal at baseline. 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 Cardio/Vascular: Yes: HTN Renal/: Yes: Renal Failure, Hemodialysis Psych: Yes: Anxiety, Depression - Past Surgical History Past Surgical History: Yes: AV Fistula/Graft - Alcohol/Substance Use Hx Alcohol Use: No History of Substance Use: reports: None - Smoking History Smoking history: Unknown if ever smoked Have you smoked in the past 12 months: No - Social History ADL: Support Services Home Medications - Allergies Allergies/Adverse Reactions: Allergies Allergy/AdvReac Type Severity Reaction Status Date / Time No Known Allergies Allergy Verified 03/28/19 18:26 - Home Medications Home Medications: Ambulatory Orders Aspirin [Ecotrin] 81 mg PO DAILY 03/28/19 Darbepoetin Jacob in Polysorbat [Aranesp] 60 mcg IJ ASDIR 03/28/19 Lidocaine [Aspercreme] 1 each TP DAILY 03/28/19 Loperamide HCl [Loperamide] 2 mg PO Q8H PRN 03/28/19 Metoprolol Tartrate 25 mg PO BID 03/28/19 Mirtazapine [Remeron -] 30 mg PO DAILY 03/28/19 Sertraline HCl [Zoloft -] 25 mg PO DAILY 03/28/19 Sevelamer Carbonate [Renvela] 800 mg PO TID 03/28/19 Zinc Oxide 20% Topical Oint 454 gm NR DAILY 03/28/19 Megestrol Acetate Oral Susp [Megace Liquid -] 400 mg PO DAILY 03/29/19 Ondansetron [Zofran *Odt*] 4 mg SL TID 03/29/19 Family Medical History Family History: Unable to Obtain Review of Systems Unable to obtain ROS, reason: pt lethargic Physical Exam Vital Signs: Vital Signs Temperature 97.7 F 03/29/19 07:00 Pulse Rate 112 H 03/29/19 11:56 Respiratory Rate 24 H 03/29/19 11:00 Blood Pressure 92/40 L 03/29/19 11:56 O2 Sat by Pulse Oximetry (%) 100 03/29/19 11:00 Constitutional: Yes: Calm Eyes: Yes: Conjunctiva Clear HENT: Yes: Atraumatic Cardiovascular: Yes: S1, S2 Respiratory: Yes: On BiPap Gastrointestinal: Yes: Soft Renal/: Yes: Incontinence Musculoskeletal: Yes: Muscle Weakness Extremities: Yes: Other (left arm fistula without thrill or bruit) Edema: Yes Edema: LLE: 1+, RLE: 1+ Neurological: Yes: Lethargy Labs: CBC, BMP 03/29/19 08:10 03/29/19 08:10 Imaging - Results Chest X-ray: Report Reviewed Problem List - Problems (1) Acute respiratory failure with hypoxia Code(s): J96.01 - ACUTE RESPIRATORY FAILURE WITH HYPOXIA (2) Anemia Code(s): D64.9 - ANEMIA, UNSPECIFIED (3) ESRD (end stage renal disease) on dialysis Code(s): N18.6 - END STAGE RENAL DISEASE; Z99.2 - DEPENDENCE ON RENAL DIALYSIS (4) Hypokalemia Code(s): E87.6 - HYPOKALEMIA Assessment/Plan Current Medications Generic Name Dose Route Start Last Admin Trade Name Freq PRN Reason Stop Dose Admin Albuterol Sulfate 1 amp 03/28/19 20:45 Ventolin 0.083% Nebulizer Soln - NEB Q4H PRN SHORTNESS OF BREATH Albuterol/Ipratropium 1 amp 03/28/19 20:45 03/29/19 12:01 Duoneb - NEB 1 amp RQID NIKHIL Administration Chlorhexidine Gluconate 1 applic 03/28/19 22:00 Hibiclens For Decolonization - TP HS NIKHIL Heparin Sodium (Porcine) 5,000 unit 03/28/19 22:00 03/29/19 06:08 Heparin - SQ 5,000 unit TID NIKHIL Administration Piperacillin Sod/Tazobactam 50 mls @ 100 mls/hr 03/29/19 02:00 Sod 2.25 gm/ Dextrose IVPB Q8H-IV NIKHIL Protocol Sodium Chloride 1,000 mls @ 75 mls/hr 03/28/19 21:00 03/28/19 21:52 Normal Saline - IV 75 mls/hr ASDIR NIKHIL Administration Piperacillin Sod/Tazobactam 50 mls @ 100 mls/hr 03/29/19 02:00 03/29/19 10:49 Sod 2.25 gm/ Dextrose IVPB 03/29/19 18:29 100 mls/hr Q8H-IV NIKHIL Administration Protocol Norepinephrine Bitartrate 8, 500 mls @ 18.75 mls/hr 03/29/19 01:15 03/29/19 11:56 000 mcg/ Dextrose IV 7.46 mcg/min TITR NIKHIL 28 mls/hr Titration Protocol 5 MCG/MIN Mupirocin 1 applic 03/28/19 22:00 Bactroban Ointment (For Decolonization) - NS 04/02/19 21:59 BID NIKHIL Impression 1. ESRD 2. resp failure requiring bipap 3. hypotension 4. change in mental status 5. av fistula malfunction 6. sepsis 7. dementia 8. hypokalemia 9. anemia Plan - called vascular to evaluate access - will hold off HD today - repeat lytes to evaluate potassium discussed with ICU team - admit to ICU - pressors to a MAP of 65 - abx per primary team
--- NOTE | 2019-03-29 14:02 | PN ---
Teaching Attending Note Name of Resident: Devon Summers ATTENDING PHYSICIAN STATEMENT I saw and evaluated the patient. I reviewed the resident's note and discussed the case with the resident. I agree with the resident's findings and plan as documented. SUBJECTIVE: Pt seen and examined in the ER. On BiPAP with 100% FiO2, on levophed gtt. OBJECTIVE: Vital Signs Period Temp Pulse Resp BP Sys/Anderson Pulse Ox Last 24 Hr 97.7 F-99.3 F 82-112 20-65 48-103/35-70 75-100 Intake & Output 03/26/19 03/27/19 03/28/19 03/29/19 23:59 23:59 23:59 23:59 Output Total 25 Balance -25 Weight 50.802 kg Gen: mildly tachypneic on BiPAP Heart: RRR Lung: decreased breath sounds at the bases Abd: soft, nontender Ext: no edema CBC, BMP 03/29/19 08:10 03/29/19 08:10 Active Medications Albuterol Sulfate (Ventolin 0.083% Nebulizer Soln -) 1 amp NEB Q4H PRN PRN Reason: SHORTNESS OF BREATH Albuterol/Ipratropium (Duoneb -) 1 amp NEB RQID NIKHIL Last Admin: 03/29/19 12:01 Dose: 1 amp Chlorhexidine Gluconate (Hibiclens For Decolonization -) 1 applic TP HS NIKHIL Heparin Sodium (Porcine) (Heparin -) 5,000 unit SQ TID NIKHIL Last Admin: 03/29/19 06:08 Dose: 5,000 unit Sodium Chloride (Normal Saline -) 1,000 mls @ 75 mls/hr IV ASDIR NIKHIL Last Admin: 03/28/19 21:52 Dose: 75 mls/hr Norepinephrine Bitartrate 8, (000 mcg/ Dextrose) 500 mls @ 18.75 mls/hr IV TITR NIKHIL; Protocol Last Titration: 03/29/19 11:56 Dose: 7.46 mcg/min, 28 mls/hr Piperacillin Sod/Tazobactam (Sod 2.25 gm/ Dextrose) 50 mls @ 100 mls/hr IVPB Q8H-IV NIKHIL; Protocol Mupirocin (Bactroban Ointment (For Decolonization) -) 1 applic NS BID NIKHIL Stop: 04/02/19 21:59 ASSESSMENT AND PLAN: Acute Hypoxic Respiratory Failure Pneumonia likely Aspiration UTI Septic Shock Lactic Acidosis +Troponins likely Demand Ischemia ESRD on HD Anemia HTN Dementia - continue antibiotics - f/u cultures - IVF - titrate pressors to maintain MAP >65 - O2 to keep Spo2 >90% - BiPAP to assist in work of breathing - replete lytes - ICU monitoring critical care time spent in reviewing chart, evaluating patient and formulating plan 35 min
--- NOTE | 2019-03-29 14:30 | CON.CARD ---
Consult Consult Specialty:: Cardiology - History of Present Illness Chief Complaint: Elevated TP History of Present Illness: 73 y/o woman from [facility] with a PMHx of ESRD (HD- M,W,F), CKD, HTN, Anemia, MDD, Anxiety, UTI, Hypokalemia, Constipation. Presents to the ED with SOB, hypoxia, and hypotension. Patient was found this am with brown vomitus on her clothing and bed. She is being treated for Aspiration PNA. She has elevated TP level. Hypoxia. 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 Cardio/Vascular: Yes: HTN Renal/: Yes: Renal Failure, Hemodialysis Psych: Yes: Anxiety, Depression - Past Surgical History Past Surgical History: Yes: AV Fistula/Graft - Alcohol/Substance Use Hx Alcohol Use: No History of Substance Use: reports: None - Smoking History Smoking history: Unknown if ever smoked Have you smoked in the past 12 months: No - Social History ADL: Support Services Home Medications - Allergies Allergies/Adverse Reactions: Allergies Allergy/AdvReac Type Severity Reaction Status Date / Time No Known Allergies Allergy Verified 03/28/19 18:26 - Home Medications Home Medications: Ambulatory Orders Aspirin [Ecotrin] 81 mg PO DAILY 03/28/19 Darbepoetin Jacob in Polysorbat [Aranesp] 60 mcg IJ ASDIR 03/28/19 Lidocaine [Aspercreme] 1 each TP DAILY 03/28/19 Loperamide HCl [Loperamide] 2 mg PO Q8H PRN 03/28/19 Metoprolol Tartrate 25 mg PO BID 03/28/19 Mirtazapine [Remeron -] 30 mg PO DAILY 03/28/19 Sertraline HCl [Zoloft -] 25 mg PO DAILY 03/28/19 Sevelamer Carbonate [Renvela] 800 mg PO TID 03/28/19 Zinc Oxide 20% Topical Oint 454 gm NR DAILY 03/28/19 Megestrol Acetate Oral Susp [Megace Liquid -] 400 mg PO DAILY 03/29/19 Ondansetron [Zofran *Odt*] 4 mg SL TID 03/29/19 Family Medical History Family History: Unable to Obtain Review of Systems Unable to obtain ROS, reason: Dementia Vital Signs: Vital Signs Temperature 97.7 F 03/29/19 07:00 Pulse Rate 106 H 03/29/19 13:08 Respiratory Rate 21 H 03/29/19 13:08 Blood Pressure 91/65 03/29/19 13:08 O2 Sat by Pulse Oximetry (%) 95 03/29/19 13:08 Constitutional: Yes: No Distress, Mild Distress Eyes: Yes: Conjunctiva Clear, EOM Intact HENT: Yes: Atraumatic, Normocephalic Neck: Yes: Supple, Trachea Midline Respiratory: Yes: Regular (poo effort.), CTA Bilaterally Gastrointestinal: Yes: Normal Bowel Sounds Cardiovascular: Yes: Regular Rate and Rhythm JVD: No Carotid Bruit: No PMI: Non-Displaced Heart Sounds: Yes: S1, S2 Murmur: No: Systolic Murmur, Diastolic Murmur Edema: No Peripheral Pulses WNL: No - Other Data Labs, Other Data: CBC, BMP 03/29/19 08:10 03/29/19 08:10 INR, PTT INR 1.25 (0.83-1.09) H 03/28/19 18:39 Troponin, BNP 03/28/19 03/28/19 03/28/19 18:39 18:39 20:51 Troponin I Cancelled 0.07 H 0.19 H 03/29/19 03/29/19 03:15 10:39 Troponin I 0.51 H 0.56 H Troponin, BNP 03/28/19 03/28/19 03/28/19 18:39 18:39 20:51 Troponin I Cancelled 0.07 H 0.19 H 03/29/19 03/29/19 03:15 10:39 Troponin I 0.51 H 0.56 H SInus tachy APC No ST T changes. Problem List - Problems (1) Acute respiratory failure with hypoxia Code(s): J96.01 - ACUTE RESPIRATORY FAILURE WITH HYPOXIA (2) ESRD (end stage renal disease) on dialysis Code(s): N18.6 - END STAGE RENAL DISEASE; Z99.2 - DEPENDENCE ON RENAL DIALYSIS Assessment/Plan 73 y/o woman from [facility] with a PMHx of ESRD (HD- M,W,F), CKD, HTN, Anemia, MDD, Anxiety, UTI, Hypokalemia, Constipation. Presents to the ED with SOB, hypoxia, and hypotension. Patient was found this am with brown vomitus on her clothing and bed. She is being treated for Aspiration PNA. She has elevated TP level. Hypoxia. Mildly elevated TP due to ESRD status and demand mediated ischemia/injury. Patient without signs of heart failure. edical therapy for sepsis is admived. Follow echo results.
--- NOTE | 2019-03-29 14:42 | PN ---
Progress Note (short form) - Note Progress Note: pt seen/ examined in er chart reviewed all consults noted/ appreciated d/w rn also on pressors drowsy but arousable answers simple questions denies pain Vital Signs Temp 97.7 F 03/29/19 07:00 Pulse 106 H 03/29/19 13:08 Resp 21 H 03/29/19 13:08 BP 91/65 03/29/19 13:08 Pulse Ox 95 03/29/19 13:08 Intake & Output 03/28/19 03/29/19 03/29/19 23:59 11:59 23:59 Output Total 25 Balance -25 Weight 112 lb Output: Urine 25 Staples 25 Other: Height 5 ft 2 in Body Mass Index (BMI) 20.5 Weight Measurement Method Estimated by Staff Active Medications Albuterol Sulfate (Ventolin 0.083% Nebulizer Soln -) 1 amp NEB Q4H PRN PRN Reason: SHORTNESS OF BREATH Albuterol/Ipratropium (Duoneb -) 1 amp NEB RQID NIKHIL Last Admin: 03/29/19 12:01 Dose: 1 amp Chlorhexidine Gluconate (Hibiclens For Decolonization -) 1 applic TP HS NIKHIL Heparin Sodium (Porcine) (Heparin -) 5,000 unit SQ TID NIKHIL Last Admin: 03/29/19 06:08 Dose: 5,000 unit Sodium Chloride (Normal Saline -) 1,000 mls @ 75 mls/hr IV ASDIR NIKHIL Last Admin: 03/28/19 21:52 Dose: 75 mls/hr Norepinephrine Bitartrate 8, (000 mcg/ Dextrose) 500 mls @ 18.75 mls/hr IV TITR NIKHIL; Protocol Last Titration: 03/29/19 11:56 Dose: 7.46 mcg/min, 28 mls/hr Piperacillin Sod/Tazobactam (Sod 2.25 gm/ Dextrose) 50 mls @ 100 mls/hr IVPB Q8H-IV NIKHIL; Protocol Mupirocin (Bactroban Ointment (For Decolonization) -) 1 applic NS BID NIKHIL Stop: 04/02/19 21:59 CBC, BMP 03/29/19 08:10 03/29/19 08:10 Microbiology 03/29/19 03:15 Legionella Antigen - Final Urine For Antigen Detection Streptococcus pneumoniae Antigen (M - Final cxr/ ct scans abd/ head -- reviewed Physical Exam Drowsy/ arousable weak neck- supple lungs- diminished at bases cvs- s1, s2 rrr abd - soft ext- no edema ASSESSMENT AND PLAN: Acute Hypoxic Respiratory Failure Pneumonia ---Aspiration Sepsis Demand Ischemia ESRD on HD Anemia Hypotension Continue present care - antibiotics - Pressor support - - BiPAP to assist in work of breathing - - ICU monitoring --Condition critical -Will follow
--- NOTE | 2019-03-29 15:33 | ECHO ---
Name: MORGAN MARCELO Exam:Adult Echocardiogram Study Date: 03/29/2019 12:49 PM Age: 73 yrs Reason For Study: DEMAND ISCHEMIA Height: 62 in Weight: 112 lb BSA: 1.5 m2 MMode/2D Measurements & Calculations IVSd: 1.2 cm Ao root diam: 2.5 cm LVIDd: 3.9 cm LA dimension: 3.7 cm LVIDs: 2.6 cm LVPWd: 0.75 cm EDV(Teich): 64.5 ml LVOT diam: 2.0 cm ESV(Teich): 24.6 ml Doppler Measurements & Calculations MV E max alexis: 60.2 cm/sec Ao V2 max: 216.6 cm/sec MV A max alexis: 105.6 cm/sec Ao max P.8 mmHg MV E/A: 0.57 Ao V2 mean: 151.4 cm/sec MV dec time: 0.14 sec Ao mean P.7 mmHg Ao V2 VTI: 30.7 cm JADA(I,D): 1.8 cm2 JADA(V,D): 1.6 cm2 LV V1 max P.4 mmHg MR max alexis: 371.4 cm/sec LV V1 mean P.4 mmHg MR max P.2 mmHg LV V1 max: 105.3 cm/sec LV V1 mean: 73.4 cm/sec LV V1 VTI: 17.3 cm SV(LVOT): 55.5 ml TR max alexis: 421.8 cm/sec TR max P.2 mmHg PI end-d alexis: 167.0 cm/sec Med Peak E' Alexis: 3.2 cm/sec Med E/e': 18.9 Lat Peak E' Alexis: 2.9 cm/sec Lat E/e': 20.9 Procedure A complete two-dimensional transthoracic echocardiogram was performed (2D, M-mode, Doppler and color flow Doppler). Technically limited study. Left Ventricle The left ventricle is normal in size. Left ventricular systolic function is normal. Ejection Fraction = 55- 60%. No regional wall motion abnormalities noted. Right Ventricle RV cavity appears dilated with mildly reduced systolic function. Atria The left atrial size is normal. Right atrial size is normal. Mitral Valve There is moderate to severe mitral valve thickening. There is moderate to severe mitral annular calci fication. There is mild to moderate mitral regurgitation. Tricuspid Valve The tricuspid valve is normal in structure and function. There is moderate to severe tricuspid regurg itation. Pulmonary artery systolic pressure is at least 81 mmHg if RA pressure is assumed 3 mmHg. Aortic Valve There is mild aortic valve thickening. Mild aortic regurgitation. Pulmonic Valve The pulmonic valve is not well visualized. Mild pulmonic valvular regurgitation. Great Vessels The aortic root is normal size. Pericardium/Pleura There is no pericardial effusion. Large pleural effusion. Interpretation Summary Technically limited study The left ventricle is normal in size. Left ventricular systolic function is normal. No regional wall motion abnormalities noted. Ejection Fraction = 55-60%. RV cavity appears dilated with mildly reduced systolic function. The left atrial size is normal. Right atrial size is normal. There is moderate to severe mitral valve thickening. There is moderate to severe mitral annular calcification. There is mild to moderate mitral regurgitation. There is moderate to severe tricuspid regurgitation. There is mild aortic valve thickening. Mild aortic regurgitation. Mild pulmonic valvular regurgitation. There is no pericardial effusion. Large pleural effusion Previous study is not available for comparison Mukund Zhou MD 03/29/2019 03:32 PM
--- NOTE | 2019-03-29 16:45 | CONSULT ---
Consult - text type - Consultation Consultation Note: 73 year old woman with ESRD on HD admittted with sepsis from SNF. Last dialysis friday. Left arm AV graft noted to be occluded today. Patient unable to give additional history. Left upper arm AV graft with no pulse. No erythema, swelling or tenderness noted over graft. If dialysis needed a temporary femoral catheter will need to be placed in ICU. When stable, off pressors and not bacteremic, graft thrombectomy will be done.
[2019-03-29] MEDS ORDERED: D5-1/2NS+40 MEQ KCL - 40 MEQ/1,000 ML INFUS.BAG IV SCH (17:30)
[2019-03-29] MEDS ORDERED: PANTOPRAZOLE SODIUM 40 MG VIAL IVPUSH ONE (18:12)
[2019-03-29] MEDS ORDERED: PANTOPRAZOLE SODIUM 80 MG in SODIUM CHLORIDE 100 ML IVPB SCH (18:15)
[2019-03-29] MEDS ORDERED: PANTOPRAZOLE SODIUM 40 MG VIAL ONE (18:29)
--- NOTE | 2019-03-29 18:40 | PDOC ---
*Physical Exam - Vital Signs Last Vital Signs Temp Pulse Resp BP Pulse Ox 97.7 F 106 H 19 91/65 95 03/29/19 07:00 03/29/19 13:08 03/29/19 18:22 03/29/19 13:08 03/29/19 13:08 ED Treatment Course - LABORATORY CBC & Chemistry Diagram: 03/29/19 08:10 03/29/19 18:31 - ADDITIONAL ORDERS Additional order review: 03/28/19 18:39 RBC 3.04 L MCV 107.3 H MCHC 31.1 L RDW 23.2 H MPV 9.2 Neutrophils % 86.9 H Lymphocytes % 6.9 L Monocytes % 5.9 Eosinophils % 0.1 Basophils % 0.2 - Medications Given in the ED: ED Medications Discontinued Medications Generic Name Dose Route Start Last Admin Trade Name Freq PRN Reason Stop Dose Admin Calcium Gluconate 1,000 mg 03/29/19 09:18 03/29/19 10:00 Calcium Gluconate 10% - IVPUSH 03/29/19 09:19 1,000 mg ONCE ONE Administration Piperacillin Sod/Tazobactam 50 mls @ 100 mls/hr 03/28/19 19:02 03/28/19 20:57 Sod 3.375 gm/ Dextrose IVPB 03/28/19 19:31 100 mls/hr ONCE ONE Administration Protocol Potassium Chloride 10 meq in 100 mls @ 100 mls/hr 03/28/19 20:15 03/28/19 23: 16 Potassium Chloride 10 Meq Premix Ivpb - IVPB 03/28/19 22:14 Not Given Q60M NIKHIL Sodium Chloride 1,000 mls @ 1,000 mls/hr 03/28/19 20:23 03/28/19 20:30 Normal Saline - IV 03/28/19 21:22 1,000 mls/hr ASDIR STA Administration Sodium Chloride 1,000 mls @ 1,000 mls/hr 03/28/19 20:23 03/28/19 20:30 Normal Saline - IV 03/28/19 21:22 1,000 mls/hr ASDIR STA Administration Piperacillin Sod/Tazobactam 50 mls @ 100 mls/hr 03/29/19 02:00 03/29/19 10:49 Sod 2.25 gm/ Dextrose IVPB 03/29/19 18:29 100 mls/hr Q8H-IV NIKHIL Administration Protocol Norepinephrine Bitartrate 4, 500 mls @ 37.5 mls/hr 03/29/19 00:30 03/29/19 02 :13 000 mcg/ Dextrose IV Not Given TITR NIKHIL Protocol 5 MCG/MIN Sodium Chloride 500 mls @ 500 mls/hr 03/29/19 03:46 03/29/19 03:58 Normal Saline - IV 03/29/19 04:45 500 mls/hr ASDIR STA Administration Lactated Ringer's 1,000 ml 03/28/19 21:07 03/28/19 21:23 Lactated Ringers Solution IV 03/28/19 21:08 1,000 ml NOW ONE Administration Potassium Chloride 20 meq 03/29/19 09:30 03/29/19 14:00 Potassium Chloride 20 Meq Premix Ivpb - IVPB 03/29/19 11:31 20 meq Q60M NIKHIL Administration Vancomycin HCl 1,000 mg 03/28/19 19:02 03/28/19 20:37 Vancomycin (Pre-Docked) IVPB 03/28/19 19:03 1,000 mg ONCE ONE Administration Protocol Medical Decision Making - Medical Decision Making 03/29/19 18:29 Called to patient's bedside for vomiting and respiratory distress. Patient found to be apneic with vomitus around mouth. Patient shortly thereafter lost pulses, presumed to be 2/2 hypoxic respiratory failure 2/2 aspiration. Chest compressions were immediately started. Patient was intubated by Dr Mendez per procedure note. Patient given 5 rounds of epi, 2 of bicarb, and 1 CaCl. Every pulse check showed PEA arrest with cardiac activity on ultrasound, initially with wide QRS complexes, narrowing post code. ROSC achieved after approximately 20 minutes of downtime. After ROSC achieved, initial BP 140/100s. EKG showed sinus tachycardia. SP02 90% -93%. Patient does not qualify for cooling protocol given sepsis admission. ICU updated. Xavi, health care proxy, updated. 03/29/19 19:11 CXR shows slightly deep placement, backed 2 cm. CXR shows likely ARDS. Will manage vent settings per ARDS net protocol. Patient remaining hypoxic despite PEEP trial, plateau pressures over 30. Discharge - Discharge Information Problems reviewed: Yes Clinical Impression/Diagnosis: Hypovolemia Hypotension Qualifiers: Hypotension type: unspecified hypotension type Qualified Code(s): I95.9 - Hypotension, unspecified Aspiration into airway Qualifiers: Encounter type: initial encounter Qualified Code(s): T17.908A - Unspecified foreign body in respiratory tract, part unspecified causing other injury, initial encounter Condition: Stable - Follow up/Referral - Patient Discharge Instructions - Post Discharge Activity Procedures - Intubation Time of Intubation: 18:25 Intubation Method: orotracheal Blade used: Mac Tube Size (Fr): 7.0 Tube position @ lip (cm): 22 Tube position confirmed by: Direct visualization, CO2 detector, Chest x-ray, Breath sounds Breath Sounds after Intubation: equal Intubation Complications: apparent aspiration Post Intubation Xray: Yes (pending)
[2019-03-29] MEDS ORDERED: VASOPRESSIN 50 UNITS in SODIUM CHLORIDE 97.5 ML IVPB SCH (19:00)
[2019-03-29 19:10] LABS: BLOOD UREA NITROGEN 42.9 mg/dL (7-18); CALCIUM 8.6 mg/dL (8.5-10.1); CREATININE 2.4 mg/dL (0.55-1.3)
[2019-03-29] MEDS ORDERED: SODIUM CHLORIDE 1,000 ML IV SCH (21:00)
[2019-03-29 21:42] LABS: ARTERIAL BLD GAS O2 SATURATION 57.4 % (95-98); ARTERIAL BLOOD GAS PO2 52.1 mmHg (80-100)
[2019-03-29 21:43] LABS: ALLENS TEST POSITIVE; ARTERIAL BLOOD GAS BASE EXCESS -16.7 meq/l (-2-2)
[2019-03-29 21:45] LABS: ARTERIAL BLOOD GAS pH 6.98 (7.35-7.45)
--- NOTE | 2019-03-29 21:54 | PN ---
Physical Exam: SUBJECTIVE: Patient seen and examined at bedside in the ER. Patient continues to be on bipap and levophed drip. OBJECTIVE: Vital Signs Period Temp Pulse Resp BP Sys/Anderson Pulse Ox Last 24 Hr 97.7 F 82-145 19-24 59-111/40-86 92-100 GENERAL: The patient is awake, alert, and fully oriented, in no acute distress. HEAD: Normal with no signs of trauma. EYES: PERRL, extraocular movements intact, sclera anicteric, conjunctiva clear. No ptosis. ENT: Ears normal, nares patent, oropharynx clear without exudates, moist mucous membranes. NECK: Trachea midline, full range of motion, supple. LUNGS: Tachypnea. On BiPap. Breath sounds equal, no accessory muscle use. HEART: Regular rate and rhythm, S1, S2 without murmur, rub or gallop. ABDOMEN: Soft, nontender, nondistended, normoactive bowel sounds, no guarding, no rebound, no hepatosplenomegaly, no masses. EXTREMITIES: 2+ pulses, warm, well-perfused, no edema. NEUROLOGICAL: Cranial nerves II through XII grossly intact. Normal speech, gait not observed. PSYCH: Normal mood, normal affect. SKIN: Warm, dry, normal turgor, no rashes or lesions noted Laboratory Results - last 24 hr 03/28/19 03/29/19 03/29/19 21:45 01:50 03:15 WBC RBC Hgb Hct MCV MCH MCHC RDW Plt Count MPV Absolute Neuts (auto) Neutrophils % Lymphocytes % Monocytes % Eosinophils % Basophils % Nucleated RBC % Anticoagulation Therapy Puncture Site ABG pH ABG pCO2 at Pt Temp ABG pO2 at Pt Temp ABG HCO3 ABG O2 Sat (Measured) ABG O2 Content ABG Base Excess Leonidas Test O2 Delivery Device Oxygen Flow Rate Vent Mode Vent Rate Mechanical Rate PEEP Pressure Support Vent Sodium Potassium Chloride Carbon Dioxide Anion Gap BUN Creatinine Est GFR (CKD-EPI)AfAm Est GFR (CKD-EPI)NonAf POC Glucometer Random Glucose Hemoglobin A1c % Lactic Acid 5.1 H* Calcium Phosphorus Magnesium Total Bilirubin AST ALT Alkaline Phosphatase Ammonia Troponin I 0.51 H Total Protein Albumin Urine Color Yellow Urine Appearance Turbid Urine pH 8.5 H Ur Specific Byron 1.025 Urine Protein 3+ H Urine Glucose (UA) Trace Urine Ketones Trace Urine Blood 3+ H Urine Nitrite Negative Urine Bilirubin 1+ H Urine Urobilinogen 0.2 Ur Leukocyte Esterase 3+ H Urine WBC (Auto) 50-100 Urine RBC (Auto) 50-100 U Pathogenic Cast Auto Positive U Epithel Cells (Auto) 5-10 Urine Bacteria (Auto) Many Ur Random Sodium Ur Random Potassium Ur Random Chloride Random Vancomycin 03/29/19 03/29/19 03/29/19 03:15 03:15 03:15 WBC RBC Hgb Hct MCV MCH MCHC RDW Plt Count MPV Absolute Neuts (auto) Neutrophils % Lymphocytes % Monocytes % Eosinophils % Basophils % Nucleated RBC % Anticoagulation Therapy Puncture Site ABG pH ABG pCO2 at Pt Temp ABG pO2 at Pt Temp ABG HCO3 ABG O2 Sat (Measured) ABG O2 Content ABG Base Excess Leonidas Test O2 Delivery Device Oxygen Flow Rate Vent Mode Vent Rate Mechanical Rate PEEP Pressure Support Vent Sodium Potassium Chloride Carbon Dioxide Anion Gap BUN Creatinine Est GFR (CKD-EPI)AfAm Est GFR (CKD-EPI)NonAf POC Glucometer Random Glucose Hemoglobin A1c % Lactic Acid Calcium Phosphorus Magnesium Total Bilirubin AST ALT Alkaline Phosphatase Ammonia 33.00 H Troponin I Total Protein Albumin Urine Color Urine Appearance Urine pH Ur Specific Byron Urine Protein Urine Glucose (UA) Urine Ketones Urine Blood Urine Nitrite Urine Bilirubin Urine Urobilinogen Ur Leukocyte Esterase Urine WBC (Auto) Urine RBC (Auto) U Pathogenic Cast Auto U Epithel Cells (Auto) Urine Bacteria (Auto) Ur Random Sodium 98 Ur Random Potassium 19.0 L Ur Random Chloride 78 L Cancelled Random Vancomycin 03/29/19 03/29/19 03/29/19 06:28 08:10 08:10 WBC 9.7 RBC 2.49 L Hgb 8.5 L Hct 25.4 L D MCV 102.1 H MCH 34.4 H MCHC 33.7 RDW 22.4 H Plt Count 203 D MPV 8.4 Absolute Neuts (auto) 8.5 H Neutrophils % 87.2 H Lymphocytes % 6.9 L Monocytes % 5.6 Eosinophils % 0.1 Basophils % 0.2 Nucleated RBC % 0 Anticoagulation Therapy No Result Required. Puncture Site Left radial ABG pH 7.50 H ABG pCO2 at Pt Temp 39.1 ABG pO2 at Pt Temp 83.9 ABG HCO3 29.9 H ABG O2 Sat (Measured) 96.2 ABG O2 Content 12.7 ABG Base Excess 6.5 H Leonidas Test Positive O2 Delivery Device Bi pap Oxygen Flow Rate 100% Vent Mode No Result Required. Vent Rate 12 Mechanical Rate No Result Required. PEEP Pressure Support Vent 10/5 Sodium Potassium Chloride Carbon Dioxide Anion Gap BUN Creatinine Est GFR (CKD-EPI)AfAm Est GFR (CKD-EPI)NonAf POC Glucometer Random Glucose Hemoglobin A1c % < 3.5 L Lactic Acid Calcium Phosphorus Magnesium Total Bilirubin AST ALT Alkaline Phosphatase Ammonia Troponin I Total Protein Albumin Urine Color Urine Appearance Urine pH Ur Specific Byron Urine Protein Urine Glucose (UA) Urine Ketones Urine Blood Urine Nitrite Urine Bilirubin Urine Urobilinogen Ur Leukocyte Esterase Urine WBC (Auto) Urine RBC (Auto) U Pathogenic Cast Auto U Epithel Cells (Auto) Urine Bacteria (Auto) Ur Random Sodium Ur Random Potassium Ur Random Chloride Random Vancomycin 03/29/19 03/29/19 03/29/19 08:10 08:43 10:39 WBC RBC Hgb Hct MCV MCH MCHC RDW Plt Count MPV Absolute Neuts (auto) Neutrophils % Lymphocytes % Monocytes % Eosinophils % Basophils % Nucleated RBC % Anticoagulation Therapy Puncture Site ABG pH ABG pCO2 at Pt Temp ABG pO2 at Pt Temp ABG HCO3 ABG O2 Sat (Measured) ABG O2 Content ABG Base Excess Leonidas Test O2 Delivery Device Oxygen Flow Rate Vent Mode Vent Rate Mechanical Rate PEEP Pressure Support Vent Sodium 144 Potassium 2.4 L* Chloride 106 Carbon Dioxide 31 Anion Gap 7 L BUN 38.1 H Creatinine 2.1 H Est GFR (CKD-EPI)AfAm 26.21 Est GFR (CKD-EPI)NonAf 22.61 POC Glucometer Random Glucose 105 Hemoglobin A1c % Lactic Acid 4.5 H* Calcium 7.5 L Phosphorus 1.5 L Magnesium 1.8 Total Bilirubin 1.4 H AST 162 H ALT 64 H Alkaline Phosphatase 84 Ammonia Troponin I 0.56 H Total Protein 4.6 L Albumin 1.3 L Urine Color Urine Appearance Urine pH Ur Specific Byron Urine Protein Urine Glucose (UA) Urine Ketones Urine Blood Urine Nitrite Urine Bilirubin Urine Urobilinogen Ur Leukocyte Esterase Urine WBC (Auto) Urine RBC (Auto) U Pathogenic Cast Auto U Epithel Cells (Auto) Urine Bacteria (Auto) Ur Random Sodium Ur Random Potassium Ur Random Chloride Random Vancomycin 03/29/19 03/29/19 03/29/19 18:01 18:31 18:31 WBC RBC Hgb Hct MCV MCH MCHC RDW Plt Count MPV Absolute Neuts (auto) Neutrophils % Lymphocytes % Monocytes % Eosinophils % Basophils % Nucleated RBC % Anticoagulation Therapy Puncture Site ABG pH ABG pCO2 at Pt Temp ABG pO2 at Pt Temp ABG HCO3 ABG O2 Sat (Measured) ABG O2 Content ABG Base Excess Leonidas Test O2 Delivery Device Oxygen Flow Rate Vent Mode Vent Rate Mechanical Rate PEEP Pressure Support Vent Sodium 142 Potassium Chloride 108 H Carbon Dioxide 18 L Anion Gap 16 BUN 42.9 H Creatinine 2.4 H Est GFR (CKD-EPI)AfAm 22.30 Est GFR (CKD-EPI)NonAf 19.24 POC Glucometer 233 Random Glucose Hemoglobin A1c % Lactic Acid Calcium 8.6 Phosphorus Magnesium Total Bilirubin AST ALT Alkaline Phosphatase Ammonia Troponin I 0.51 H Total Protein Albumin Urine Color Urine Appearance Urine pH Ur Specific Byron Urine Protein Urine Glucose (UA) Urine Ketones Urine Blood Urine Nitrite Urine Bilirubin Urine Urobilinogen Ur Leukocyte Esterase Urine WBC (Auto) Urine RBC (Auto) U Pathogenic Cast Auto U Epithel Cells (Auto) Urine Bacteria (Auto) Ur Random Sodium Ur Random Potassium Ur Random Chloride Random Vancomycin Cancelled 03/29/19 21:38 WBC RBC Hgb Hct MCV MCH MCHC RDW Plt Count MPV Absolute Neuts (auto) Neutrophils % Lymphocytes % Monocytes % Eosinophils % Basophils % Nucleated RBC % Anticoagulation Therapy Puncture Site Right radial ABG pH 6.98 L* ABG pCO2 at Pt Temp 62.0 H ABG pO2 at Pt Temp 52.1 L ABG HCO3 13.8 L ABG O2 Sat (Measured) 57.4 L ABG O2 Content 5.9 ABG Base Excess -16.7 L Leonidas Test Positive O2 Delivery Device Vent Oxygen Flow Rate 100 Vent Mode A/c Vent Rate 20 Mechanical Rate PEEP 10.0 Pressure Support Vent 350 Sodium Potassium Chloride Carbon Dioxide Anion Gap BUN Creatinine Est GFR (CKD-EPI)AfAm Est GFR (CKD-EPI)NonAf POC Glucometer Random Glucose Hemoglobin A1c % Lactic Acid Calcium Phosphorus Magnesium Total Bilirubin AST ALT Alkaline Phosphatase Ammonia Troponin I Total Protein Albumin Urine Color Urine Appearance Urine pH Ur Specific Byron Urine Protein Urine Glucose (UA) Urine Ketones Urine Blood Urine Nitrite Urine Bilirubin Urine Urobilinogen Ur Leukocyte Esterase Urine WBC (Auto) Urine RBC (Auto) U Pathogenic Cast Auto U Epithel Cells (Auto) Urine Bacteria (Auto) Ur Random Sodium Ur Random Potassium Ur Random Chloride Random Vancomycin Active Medications Generic Name Dose Route Start Last Admin Trade Name Freq PRN Reason Stop Dose Admin Albuterol Sulfate 1 amp 03/28/19 20:45 Ventolin 0.083% Nebulizer Soln - NEB Q4H PRN SHORTNESS OF BREATH Albuterol/Ipratropium 1 amp 03/28/19 20:45 03/29/19 20:24 Duoneb - NEB 1 amp RQID NIKHIL Administration Chlorhexidine Gluconate 1 applic 03/28/19 22:00 Hibiclens For Decolonization - TP HS NIKHIL Heparin Sodium (Porcine) 5,000 unit 03/28/19 22:00 03/29/19 20:20 Heparin - SQ 5,000 unit TID NIKHIL Administration Sodium Chloride 1,000 mls @ 75 mls/hr 03/28/19 21:00 03/28/19 21:52 Normal Saline - IV 75 mls/hr ASDIR NIKHIL Administration Norepinephrine Bitartrate 8, 500 mls @ 18.75 mls/hr 03/29/19 01:15 03/29/19 17:15 000 mcg/ Dextrose IV 10 mcg/min TITR NIKHIL 37.5 mls/hr Titration Protocol 5 MCG/MIN Piperacillin Sod/Tazobactam 50 mls @ 100 mls/hr 03/29/19 18:00 Sod 2.25 gm/ Dextrose IVPB Q8H-IV NIKHIL Protocol Dextrose/Sodium Chloride 40 meq in 1,000 mls @ 0 mls/hr 03/29/19 17:30 20:21 D5-1/2ns+40 Meq Kcl - IV 1,000 mls/hr ASDIR NIKHIL Administration Wide Open Pantoprazole Sodium 80 mg/ 100 mls @ 10 mls/hr 03/29/19 18:15 03/29/19 18:45 Sodium Chloride IVPB 10 mls/hr Q10H NIKHIL Administration 8 MG/HR Vasopressin 50 units/ Sodium 100 mls @ 4 mls/hr 03/29/19 19:00 03/29/19 20:15 Chloride IVPB 2 units/hr ASDIR NIKHIL 4 mls/hr Administration Protocol 2 UNITS/HR Mupirocin 1 applic 03/28/19 22:00 Bactroban Ointment (For Decolonization) - NS 04/02/19 21:59 BID NIKHIL ASSESSMENT/PLAN: 73 y/o F with PMH ESRD (M/W/F; L AVF), HTN, met encephalopathy, recurrent UTI, anemia, hypokalemia, dementia, depression, who presented to the ED for hypotension and lethargy that occurred today. ICU consulted for hypotension, lethargy and possible aspiration PNA. #Neuro -AAO x 2 -currently no longer lethargic -however f/u head CT, ammonia level to r/o alternate causes toxic met encephalopathy may also be 2/2 uremia, vol depletion. #Pulm/ID Acute hypoxic RF, sepsis 2/2 aspiration PNA -w/ possible asp PNA on CXR: JIGAR. f/u official read -c/w duonebs RQID, ventolin q4h PRN -s/p vanc, zosyn in ED. c/w zosyn 2.25 gm q8 (renally dosed) -f/u ucx, blood cx, spu -on BiPAP. w/o lethargy currently. mentating well, no emesis since well before arrival. protecting own airway on for work of breathing -improved hypoxia. Pa02 wnl on ABG -supplemental O2, maintain SpO2 > 90% #Cardio Hypotension - resolved -possible 2/2 sepsis, has improved and resp well to IVF initially -+L IJ placed in ED, to start on levo gtt -c/t monitor. MAP in high 70's, goal of MAP > 65 -f/u UO to check for adequate vol resuscitation. -hold met tartate Demand ischemia possible 2/2 sepsis -initial trop 0.07 >0.19> c/t trend -repeat EKG -f/u ECHO #GI metabolic alkalosis possible 2/2 diarrhea, vomiting, hypokalemia contraction alkalosis -currently without vomiting. may have chronic diarrhea, on loperamide PRN at [place] -seen on ABG. f/u repeat -f/u U chloride -elevated lactic (11)>9.6> 5> repeat and trend, likely vol depleted. -received 3L IVF in ER, initially responded well. -f/u CTAP to check for alternate pathology, also w/ elevated lactic check for ischemia -f/u stool cx, ova and parasites. f/u UO to assess for adequate vol resusc #Renal MAGALIE vs MAGALIE on CKD -c/w gentle IVF to avoid overload -f/u urine lytes, likely pre-renal from vol depletion -f/u renal, bladder sono - check for hydro ESRD -on HD M, W, F. has AVF -dialyzed on F -will consult Nephro for poss dialysis tomorrow Hypokalemia -has chronically -will avoid giving K for now as renal patient -c/t monitor #F/E/N IV NS 75 cc/hr continue to follow lytes, replete PRN NPO #lines/tubes +L IJ- 03/29 +lui #PPX DVT: hep 5k sq tid #Dispo continue ICU care Visit type - Emergency Visit Emergency Visit: Yes ED Registration Date: 03/28/19 Care time: The patient presented to the Emergency Department on the above date and was hospitalized for further evaluation of their emergent condition. - New Patient This patient is new to me today: No - Critical Care Critical Care patient: Yes Total Critical Care Time (in minutes): 35 Critical Care Statement: The care of this patient involved high complexity decision making to prevent further life threatening deterioration of the patient 's condition and/or to evaluate & treat vital organ system(s) failure or risk of failure. ATTENDING PHYSICIAN STATEMENT I saw and evaluated the patient. I reviewed the resident's note and discussed the case with the resident. I agree with the resident's findings and plan as documented. SUBJECTIVE: OBJECTIVE: ASSESSMENT AND PLAN:
[2019-03-29] MEDS: CHLORHEXIDINE GLUCONATE 4% CLEANSER FOR DECOLONIZATION TP SCH ×2 (22:00→23:41)
[2019-03-29] MEDS ORDERED: SODIUM BICARBONATE 8.4% 50 MEQ/50 ML VIAL ONE (22:02)
[2019-03-29] MEDS ORDERED: SODIUM BICARBONATE 8.4% 50 MEQ/50 ML DISP.SYRIN IVPUSH ONE (22:03)
[2019-03-29 22:16] LABS: BASO % 0.2 % (0-2.0); EOS % 0.7 % (0-4.5); HEMATOCRIT 24.9 % (32.4-45.2); HEMOGLOBIN 7.2 GM/dL (10.7-15.3); LYMPH % 13.8 % (8-40); MCH 33.1 pg (25.7-33.7); MCHC 28.8 g/dl (32.0-36.0); MEAN CELL VOLUME 115.1 fl (80-96); MEAN PLT VOLUME 8.8 fl (7.5-11.1); MONO % 1.8 % (3.8-10.2); NEUT % 83.5 % (42.8-82.8); PLATELET COUNT 189 K/MM3 (134-434); RBC 2.17 M/mm3 (3.60-5.2); RDW 23.6 % (11.6-15.6); WHITE BLOOD COUNT 7.2 K/mm3 (4.0-10.0)
--- NOTE | 2019-03-29 22:17 | PN ---
Teaching Attending Note Name of Resident: Lakshmi Jackson ATTENDING PHYSICIAN STATEMENT I saw and evaluated the patient. I reviewed the resident's note and discussed the case with the resident. I agree with the resident's findings and plan as documented. SUBJECTIVE: OBJECTIVE: ASSESSMENT AND PLAN: SEPSIS/ SEPTIC SHOCK PROBABLE ASP PNEUMONIA RESP INSUFFICIENCY TOXIC METABOLIC ENCEPHALOPATHY ? SBO ESRD AWAIT SEPSIS WORKUP CONTINUE ZOSYN/ VANCOMYCIN, ADJUSTED FOR RENAL FAILURE
[2019-03-29 22:24] LABS: BLOOD UREA NITROGEN 40.2 mg/dL (7-18); CALCIUM 7.5 mg/dL (8.5-10.1); CREATININE 2.3 mg/dL (0.55-1.3); POTASSIUM 4.7 mmol/L (3.5-5.1)
[2019-03-29] MEDS ORDERED: VASOPRESSIN 20 UNITS/ML VIAL IV ONE (22:45)
--- NOTE | 2019-03-29 23:08 | PN ---
Progress Note (short form) - Note Progress Note: Patient found to be without pulses at 2243. ACLS protocol initiated. 6 rounds of CPR, 2 doses of epi (1 mg), and 1 amp of bicarb given. ROSC at 2257. Please refer to code sheet for additional details. Health care proxy, Bang Sanchez, called during the code and requested that we continue CPR until he arrived. Patient found to be without pulses again at 2345. ACLS protocol initiated. 5 rounds of CPR, 2 doses of epi (1 mg), 1 amp of bicarb given. Please refer to code sheet for additional details. At 2354, patient's nephew and health care proxy, Bang Sanchez, made a verbal decision as health care proxy that CPR be stopped. Time of 235. Pupils fixed and dilated bilaterally. Unresponsive to light. No spontaneous breath sounds or heart sounds appreciated on auscultation. No peripheral pulses palpable (carotid, femoral, radial).
--- NOTE | 2019-03-29 23:25 | RAPID ---
Physical Examination Vital Signs: Vital Signs Temperature 97.7 F 03/29/19 07:00 Pulse Rate 138 H 03/29/19 20:15 Respiratory Rate 21 H 03/29/19 19:15 Blood Pressure 67/44 L 03/29/19 19:15 O2 Sat by Pulse Oximetry (%) 97 03/29/19 19:15 Code 99 called at 2244 Rapid response team arrived immediately. Patient was in asystole, CPR initiated by ICU team. ROSC obtained at 2257. Please see code sheet for further information. Labs: CBC, BMP 03/29/19 22:10 03/29/19 22:10
--- NOTE | 2019-03-30 | RAPID ---
Physical Examination Vital Signs: Vital Signs Temperature 97.7 F 03/29/19 07:00 Pulse Rate 138 H 03/29/19 20:15 Respiratory Rate 21 H 03/29/19 19:15 Blood Pressure 67/44 L 03/29/19 19:15 O2 Sat by Pulse Oximetry (%) 97 03/29/19 19:15 Code 99 called at 2345. Rapid response team arrived immediately. Patient was in asystole at 2343, ACLS protocol was initiated. Please refer to code sheet for further information. Patient's Health Care proxy, Gary Sanchez, requested that CPR be stopped at 2354. Time of called at 2354. Labs: CBC, BMP 03/29/19 22:10 03/29/19 22:10
[2019-03-30 02:01] VITALS: TEMP 96
[2019-03-30 02:03] VITALS: BP 118/78; PULSE 127
--- NOTE | 2019-03-30 12:51 | EKG ---
Test Reason : Blood Pressure : / mmHG Vent. Rate : 109 BPM Atrial Rate : 109 BPM P-R Int : 176 ms QRS Dur : 102 ms QT Int : 370 ms P-R-T Axes : 050 -32 135 degrees QTc Int : 498 ms SINUS TACHYCARDIA POSSIBLE LEFT ATRIAL ENLARGEMENT LEFT AXIS DEVIATION ANTERIOR INFARCT (CITED ON OR BEFORE 29-MAR-2019) ABNORMAL ECG WHEN COMPARED WITH ECG OF 29-MAR-2019 18:09, LEFT ANTERIOR FASCICULAR BLOCK IS NO LONGER PRESENT SERIAL CHANGES OF EVOLVING ANTERIOR INFARCT PRESENT Confirmed by Devon Bustillo MD ([id number]) on 03/30/2019 12:51:23 PM Referred By: Confirmed By:Devon Bustillo MD
--- NOTE | 2019-03-30 16:12 | DS ---
Physical Examination Vital Signs: Vital Signs Temperature 96 F L 03/29/19 23:00 Pulse Rate 127 H 03/29/19 23:00 Respiratory Rate 7 L 03/29/19 23:00 Blood Pressure 118/78 03/29/19 23:00 O2 Sat by Pulse Oximetry (%) 76 L 03/29/19 21:00 Findings/Remarks: see yesterday's progress note Labs: CBC, BMP 03/29/19 22:10 03/29/19 22:10 Discharge Summary Problems reviewed: Yes Reason For Visit: ASPIRATION INTO AIRWAY,HYPOTENSION,VOMITING Hospital Course: admitted due to sepsis/hypotension/pneumonia Dialysis patient Patient did not cover--- Condition: - Instructions Referrals: Amanda Mariano MD [Primary Care Provider] - Disposition: - Home Medications Comprehensive Discharge Medication List: Ambulatory Orders Aspirin [Ecotrin] 81 mg PO DAILY 03/28/19 Darbepoetin Jacob in Polysorbat [Aranesp] 60 mcg IJ ASDIR 03/28/19 Lidocaine [Aspercreme] 1 each TP DAILY 03/28/19 Loperamide HCl [Loperamide] 2 mg PO Q8H PRN 03/28/19 Metoprolol Tartrate 25 mg PO BID 03/28/19 Mirtazapine [Remeron -] 30 mg PO DAILY 03/28/19 Sertraline HCl [Zoloft -] 25 mg PO DAILY 03/28/19 Sevelamer Carbonate [Renvela] 800 mg PO TID 03/28/19 Zinc Oxide 20% Topical Oint 454 gm NR DAILY 03/28/19 Megestrol Acetate Oral Susp [Megace Liquid -] 400 mg PO DAILY 03/29/19 Ondansetron [Zofran *Odt*] 4 mg SL TID 03/29/19
--- NOTE | 2019-04-02 22:16 | EKG ---
Test Reason : Blood Pressure : / mmHG Vent. Rate : 143 BPM Atrial Rate : 143 BPM P-R Int : 192 ms QRS Dur : 114 ms QT Int : 290 ms P-R-T Axes : 020 -48 096 degrees QTc Int : 447 ms Questionable atrial flutter with 2:1 AV block. LEFT ANTERIOR FASCICULAR BLOCK SEPTAL INFARCT (CITED ON OR BEFORE 29-MAR-2019) POSSIBLE LATERAL INFARCT , AGE UNDETERMINED ABNORMAL ECG WHEN COMPARED WITH ECG OF 29-MAR-2019 11:25, VENT. RATE HAS INCREASED BY 47 BPM BORDERLINE CRITERIA FOR LATERAL INFARCT ARE NOW PRESENT SERIAL CHANGES OF EVOLVING SEPTAL INFARCT PRESENT Confirmed by MD SHAMIKA, JURGEN ([id number]) on 04/02/2019 10:15:32 PM Referred By: Confirmed By:JURGEN WICK MD
== END 2019-03-29 22:58 | disposition expired | DRG 871 ==
LOC: JER 18:10 → JERBED 20:27 → JICU 03-29 19:56
PROVIDERS: ADMIT Internal Medicine; ATTEND Internal Medicine
PROC: 5A12012 Performance of Cardiac Output, Single, Manual (ICD-10-PCS; principal; 2019-03-29)
PROC: 5A1935Z Respiratory Ventilation, Less than 24 Consecutive Hours (ICD-10-PCS; 2019-03-29)
PROC: 0CHY7BZ Insertion of Airway into Mouth and Throat, Via Natural or Artificial Opening (ICD-10-PCS; 2019-03-29)
DX: A41.89 Other specified sepsis (principal); J96.01 Acute respiratory failure with hypoxia; N18.6 End stage renal disease; J69.0 Pneumonitis due to inhalation of food and vomit; R65.21 Severe sepsis with septic shock; G93.41 Metabolic encephalopathy; E87.3 Alkalosis; N17.9 Acute kidney failure, unspecified; I12.0 Hypertensive chronic kidney disease with stage 5 chronic kidney disease or end stage renal disease; N39.0 Urinary tract infection, site not specified; E46 Unspecified protein-calorie malnutrition; I24.8 Other forms of acute ischemic heart disease; E87.2 Acidosis; R64 Cachexia; E87.6 Hypokalemia; F03.90 Unspecified dementia, unspecified severity, without behavioral disturbance, psychotic disturbance, mood disturbance, and anxiety; R41.82 Altered mental status, unspecified; D64.9 Anemia, unspecified; I95.9 Hypotension, unspecified; R19.7 Diarrhea, unspecified; K59.09 Other constipation; F41.8 Other specified anxiety disorders; L89.221 Pressure ulcer of left hip, stage 1; L89.611 Pressure ulcer of right heel, stage 1; Z68.20 Body mass index [BMI] 20.0-20.9, adult
CPT/HCPCS: 36415; 36600; 70450-TC; 71045-TC-FY; 74176-TC; 80048; 80053; 81003; 82140; 82375; 82436; 82803; 82962; 83036; 83050; 83605; 83735; 84100; 84133; 84300; 84484; 85025; 85610; 85730; 87040; 87086; 87186; 87899; 93005; 93010; 93306-TC; 94002; 94640; 94660; 99285-25; G0480; J1644; J7030